=== PATIENT | female | born 1945 | race African-American/Black ===

== ENCOUNTER 2020-04-13 20:10 | Emergency (ER) | payer MEDICARE, BC ==
[~2020-04-13] VITALS: Ht 154.9 cm; Wt 60.3 kg
[2020-04-13 20:28] LABS: MCH 29.3 pg (26.0-34.0); MCHC 32.2 g/dL (28.0-37.0); MCV 90.9 fL (80.0-100.0); MPV 8.4 fl. (7.2-11.1); NUCLEATED RBCS 0 /100WBC; PLATELET COUNT* 321 thou/uL (150-400); RBC 2.06 mil/uL (4.20-5.00); RDW-CV 15.7 % (10.5-14.5); WBC 28.4 thou/uL (4.0-11.0)
[2020-04-13] MEDS ORDERED: METFORMIN HCL500 MG PO (20:29)
[2020-04-13] MEDS ORDERED: LIPITOR10 MG PO (20:29)
[2020-04-13] MEDS ORDERED: LEVETIRACETAM500 M1 PO (20:29)
[2020-04-13] MEDS ORDERED: PREDNISONE 20 M20 MG PO (20:30)
[2020-04-13] MEDS ORDERED: AUGMENTIN 875-1 EACH PO (20:31)
[2020-04-13] MEDS ORDERED: ENOXAPARIN60 MG/0.1 SUBQ (20:32)
[2020-04-13] MEDS ORDERED: VITAMIN B-1100 M2 PO (20:32)
[2020-04-13] MEDS ORDERED: VITAMIN C250 M1 PO (20:32)
[2020-04-13] MEDS ORDERED: HALOPERIDOL 2 MG2 M1 PO ×2 (20:32→20:33)
[2020-04-13] MEDS ORDERED: OPTIMAL D3 M350 MCG PO (20:33)
[2020-04-13] MEDS ORDERED: ASA81BEC PO (20:34)
[2020-04-13] MEDS ORDERED: VERAPAMIL ER180 M1 PO (20:34)
[2020-04-13] MEDS ORDERED: OLANZAPINE5 M1 PO (20:34)
[2020-04-13] MEDS ORDERED: PROTONIX40 M2 PO (20:35)
[2020-04-13] MEDS ORDERED: LORAZEPAM 0.50.5 MG PO (20:35)
[2020-04-13] MEDS ORDERED: LEVOTHYROXINE112 MC1 PO (20:35)
[2020-04-13 20:37] LABS: HEMATOCRIT 18.7 % (37.0-47.0)
[2020-04-13] MEDS ORDERED: HUMALOG JU100 UNIT/1 SUBQ (20:37)
[2020-04-13 20:40] LABS: PROTIME 10.5 Seconds (9.20-11.50)
[2020-04-13 20:41] LABS: CALCIUM 8.2 mg/dL (8.5-10.1); CREATININE 2.3 mg/dL (0.6-1.3)
[2020-04-13 20:53] LABS: URINE BLOOD NEGATIVE (Negative); URINE COLOR YELLOW; URINE GLUCOSE-RANDOM NEGATIVE (Negative); URINE KETONES TRACE (Negative); URINE LEUKOCYTES-REFLEX TRACE (Negative); URINE NITRITE-REFLEX NEGATIVE (Negative); URINE PROTEIN 1+ (Negative); URINE SPECIFIC GRAVITY >= 1.030 (1.005-1.030); URINE UROBILINOGEN 0.2 E.U./dl (0.2-1.0)
[2020-04-13 20:54] LABS: ABSOLUTE LYMPHOCYTES 2.3 thou/uL (0.8-5.3); ABSOLUTE MONOCYTES 1.1 thou/uL (0.0-1.2); ALBUMIN 2.3 g/dL (3.4-5.0); MAGNESIUM 2.2 mg/dL (1.8-2.4); PLATELET ESTIMATE ADEQUATE; TOTAL BILIRUBIN 0.3 mg/dL (<0.1-1.0); TOTAL PROTEIN 6.4 g/dL (6.4-8.2)
[2020-04-13 20:58] LABS: ICTOTEST (BILI CONFIRMATORY) Negative (Negative); URINE BILIRUBIN 1+ (Negative); URINE CLARITY HAZY
[2020-04-13 21:17] LABS: AMORPHOUS URATES Many /LPF (None Seen); BACTERIA-REFLEX >30 Many /HPF (None Seen); CASTS None Seen /LPF (None Seen); MUCUS 4-6 Moderate strn/LPF (None Seen); SQUAMOUS 0-3 Few /LPF (0-3); TRANSITIONAL EPITHEL CELL 0-3 Few /LPF (None Seen); URINE RBC 3-10 Few /HPF (0-2); WBC CLUMPS Few (None Seen)
[2020-04-14 00:47] VITALS: BP 106/49
--- NOTE | 2020-04-15 09:35 | EKG ---
[place] [address] ELECTROCARDIOGRAM REPORT Name: MYNOR POLLOCK Room: [facility]#: [id number] Admission: 04/13/20 Attend Phys: Discharge: 04/14/20 Date of : 49 Date of Service: 04/13/202020 Report #: [id number] THIS REPORT FOR: //name// [facility] ED Test Date: 2020-04-13 Test Time: 20:21:09 Pat Name: MYNOR POLLOCK Department: Room: Gender: Auto [employer]ener: [facility] : 1945 Requested By: Sara Yates Order Number: [id number] MD: Sy Oconnor Measurements Intervals [place] Rate: 86 P: 53 IA: 129 QRS: 1 QRSD: 74 T: 131 QT: 372 QTc: 445 Interpretive Statements Sinus rhythm Abnormal R-wave progression, early transition Probable LVH with secondary repol abnrm No previous ECG available for comparison Electronically Signed On 04-15-2020 9:35:43 MACHINE TECHNICIAN by Sy Oconnor [email or web address] <ELECTRONICALLY SIGNED> By: Sy Oconnor MD, [facility] 04/15/20 0935 20 20 Sy Oconnor MD, [facility] /EPI
== END 2020-04-14 00:47 | disposition short-term general hospital (02) ==
LOC: M.ERS 20:10
PROVIDERS: Emergency Medicine
DX: N39.0 Urinary tract infection, site not specified (principal); D64.9 Anemia, unspecified; D72.829 Elevated white blood cell count, unspecified; K66.1 Hemoperitoneum; R53.1 Weakness; E11.9 Type 2 diabetes mellitus without complications; F03.90 Unspecified dementia, unspecified severity, without behavioral disturbance, psychotic disturbance, mood disturbance, and anxiety; I10 Essential (primary) hypertension; E03.9 Hypothyroidism, unspecified; K21.9 Gastro-esophageal reflux disease without esophagitis; E78.00 Pure hypercholesterolemia, unspecified; M19.90 Unspecified osteoarthritis, unspecified site; Z20.828 Contact with and (suspected) exposure to other viral communicable diseases; Z79.899 Other long term (current) drug therapy; Z86.73 Personal history of transient ischemic attack (TIA), and cerebral infarction without residual deficits; Z79.82 Long term (current) use of aspirin; Z79.4 Long term (current) use of insulin